=== PATIENT | male | born 1990 | race Caucasian/White ===

== ENCOUNTER 2016-09-12 17:59 | Emergency (ER) | payer SELFPAY ==
[2016-09-12] MEDS ORDERED: Sodium Chloride 0.9% 1,000 ML IV ONE (18:26)
[2016-09-12] MEDS ORDERED: Ondansetron 4 MG/2 ML SDV IVPUSH ONE (18:26)
[2016-09-12] MEDS ORDERED: Ketorolac 30 MG/ML SDV IVPUSH ONE (18:26)
--- NOTE | 2016-09-12 18:26 | EDM.PDOC ---
ED HPI GENERAL MEDICAL PROBLEM - General Chief Complaint: General Stated Complaint: PT HAS BODY PAIN Time Seen by Provider: 09/12/16 18:18 Source of Information: Reports: Patient History Limitations: Reports: No Limitations - History of Present Illness INITIAL COMMENTS - FREE TEXT/NARRATIVE: History of present illness: [25-year-old male presenting with complaints of fever, malaise as well as breaking out in sweats last night. Patient indicates that he has lower back pain and pain down his legs. He does acknowledge she doesn't have 2 things at his job but this feels like it might be more than just that.] Review of systems: As per history of present illness and below otherwise all systems reviewed and negative. Past medical history: As per history of present illness and as reviewed below otherwise noncontributory. Surgical history: As per history of present illness and as reviewed below otherwise noncontributory. Social history: No reported history of drug or alcohol abuse. Family history: As per history of present illness and as reviewed below otherwise noncontributory. Physical exam: HEENT: Atraumatic, normocephalic, pupils reactive, negative for conjunctival pallor or scleral icterus, mucous membranes moist, throat clear, neck supple, nontender, trachea midline. Lungs: Clear to auscultation, breath sounds equal bilaterally, chest nontender. Heart: S1S2, regular, negative for clicks, rubs, or JVD. Abdomen: Soft, diffuse nonspecific tenderness and nondistended abdomen. Negative for masses or hepatosplenomegaly. Negative for costovertebral tenderness. Pelvis: Stable nontender. Genitourinary: Deferred. Rectal: Deferred. Extremities: Atraumatic, negative for cords or calf pain. Neurovascular unremarkable. Neuro: Awake, alert, oriented. Cranial nerves II through XII unremarkable. Cerebellum unremarkable. Motor and sensory unremarkable throughout. Exam nonfocal. CT of abdomen negative for acute findings incidental findings of 2.5 cm segment of small bowel intussusception Spoke with Dr Sims for guidance and instructed on clear liquid and parameters for return to provide to patient. Diagnostics: [CBC, CMP] Therapeutics: [IV fluid, Toradol, Zofran] Impression: [Abdominal pain] Plan: [Gut rest clear fluids] Definitive disposition and diagnosis as appropriate pending reevaluation and review of above. Bilateral Lower Back Pain Score (Numeric/FACES): 8 - Related Data Allergies Allergy/AdvReac Type Severity Reaction Status Date / Time No Known Allergies Allergy Verified 09/12/16 18:24 Home Meds: Home Meds . [No Known Home Meds] 09/12/16 [History] ED ROS GENERAL - Review of Systems Review Of Systems: See Below (See history of present illness) ED EXAM, GENERAL - Physical Exam Exam: See Below (See history of present illness) Course - Vital Signs Last Recorded V/S: Last Vital Signs Temp 36.4 C 09/12/16 18:17 Pulse 120 H 09/12/16 18:17 Resp 20 09/12/16 18:17 BP 134/81 09/12/16 18:17 Pulse Ox 96 09/12/16 18:17 - Orders/Labs/Meds Orders: Active Orders 24 hr Category Date Time Status Abdomen Pelvis w Cont [CT] Stat Exams 09/12/16 19:32 Ordered Labs: Laboratory Tests 09/12/16 09/12/16 09/12/16 Range/Units 18:33 18:33 19:38 WBC 11.38 H (4.0-11.0) K/uL RBC 5.71 (4.50-5.90) M/uL Hgb 17.5 H (13.0-17.0) g/dL Hct 48.4 (38.0-50.0) % MCV 84.8 (80.0-98.0) fL MCH 30.6 (27.0-32.0) pg MCHC 36.2 (31.0-37.0) g/dL RDW Std Deviation 39.7 (28.0-62.0) fl RDW Coeff of [place] 13 (11.0-15.0) % Plt Count 206 (150-400) K/uL MPV 11.00 (7.40-12.00) fL Neut % (Auto) 91.3 H (48.0-80.0) % Lymph % (Auto) 2.7 L (16.0-40.0) % [place] % (Auto) 5.7 (0.0-15.0) % Eos % (Auto) 0.0 (0.0-7.0) % Baso % (Auto) 0.3 (0.0-1.5) % Neut # (Auto) 10.4 H (1.4-5.7) K/uL Lymph # (Auto) 0.3 L (0.6-2.4) K/uL [place] # (Auto) 0.7 (0.0-0.8) K/uL Eos # (Auto) 0.0 (0.0-0.7) K/uL Baso # (Auto) 0.0 (0.0-0.1) K/uL Nucleated RBC % 0.0 /100WBC Nucleated RBCs # 0 K/uL Sodium 135 L (136-146) mmol/L Potassium 4.4 (3.5-5.1) mmol/L Chloride 98 (98-110) mmol/L Carbon Dioxide 26 (21-31) mmol/L BUN 10 (6.0-23.0) mg/dL Creatinine 1.1 (0.6-1.5) mg/dL Est Cr Clr Drug Dosing 90.81 mL/min Estimated GFR (MDRD) > 60.0 ml/min Glucose 140 H (60-110) mg/dL Calcium 9.4 (8.8-10.8) mg/dL Total Bilirubin 2.1 H (0.1-1.5) mg/dL AST 91 H (5-40) IU/L ALT 91 H (8-54) IU/L Alkaline Phosphatase 113 (40-150) Total Protein 7.6 (6.0-8.0) g/dL Albumin 4.4 (3.5-5.0) g/dL Globulin 3.2 (2.0-3.5) g/dL Albumin/Globulin Ratio 1.4 (1.3-2.8) Urine Color YELLOW Urine Appearance CLEAR Urine pH 7.0 (5.0-8.0) Ur Specific [place] 1.010 (1.001-1.035) Urine Protein NEGATIVE (NEGATIVE) mg/dL Urine Glucose (UA) NEGATIVE (NEGATIVE) mg/dL Urine Ketones NEGATIVE (NEGATIVE) mg/dL Urine Occult Blood NEGATIVE (NEGATIVE) Urine Nitrite NEGATIVE (NEGATIVE) Urine Bilirubin NEGATIVE (NEGATIVE) Urine Urobilinogen 2.0 H (<2.0) EU/dL Ur Leukocyte Esterase NEGATIVE (NEGATIVE) Urine RBC 0-1 (0-2/HPF) Urine WBC 0-1 (0-5/HPF) Ur Epithelial Cells RARE (NONE-FEW) Urine Bacteria RARE (NEGATIVE) Meds: Medications Discontinued Medications Generic Name Dose Route Start Last Admin Trade Name Terri PRN Reason Stop Dose Admin Sodium Chloride 1,000 mls @ 999 mls/hr 09/12/16 18:26 09/12/16 18:38 Normal Saline IV 09/12/16 19:26 999 mls/hr STAT ONE Administration Iopamidol 100 ml 09/12/16 19:36 09/12/16 19:37 Isovue Multipack-370 (76%) IVPUSH 09/12/16 19:37 100 ml ONETIME STA Administration Ketorolac Tromethamine 30 mg 09/12/16 18:26 09/12/16 18:38 Toradol IVPUSH 09/12/16 18:27 30 mg ONETIME ONE Administration Ondansetron HCl 8 mg 09/12/16 18:26 09/12/16 18:38 Zofran IVPUSH 09/12/16 18:27 8 mg ONETIME ONE Administration Departure - Departure Time of Disposition: 20:45 Disposition: Home, Self-Care 01 Condition: Good Clinical Impression: Malaise and fatigue - Discharge Information Forms: ED Department Discharge Additional Instructions: The following information is given to patients seen in the emergency department who are being discharged to home. This information is to outline your options for follow-up care. We provide all patients seen in our emergency department with a follow-up referral. The need for follow-up, as well as the timing and circumstances, are variable depending upon the specifics of your emergency department visit. If you don't have a primary care physician on staff, we will provide you with a referral. We always advise you to contact your personal physician following an emergency department visit to inform them of the circumstance of the visit and for follow-up with them and/or the need for any referrals to a consulting specialist. The emergency department will also refer you to a specialist when appropriate. This referral assures that you have the opportunity for follow-up care with a specialist. All of these measure are taken in an effort to provide you with optimal care, which includes your follow-up. Under all circumstances we always encourage you to contact your private physician who remains a resource for coordinating your care. When calling for follow-up care, please make the office aware that this follow-up is from your recent emergency room visit. If for any reason you are refused follow-up, please contact the [facility] Emergency Department at and asked to speak to the emergency department charge nurse. Hydrate as directed Move to a clear liquid diet for the next 48 hours as tolerated with soft foods things like bananas rice applesauce and toast Follow-up with PCP 1-2 days Return to ED as needed as discussed [facility] [address] [place] [id number] - My Orders Last 24 Hours: My Active Orders 09/12/16 19:32 Abdomen Pelvis w Cont [CT] Stat - Assessment/Plan Last 24 Hours: My Active Orders 09/12/16 19:32 Abdomen Pelvis w Cont [CT] Stat
[2016-09-12 18:56] LABS: CHLORIDE,CL 98 mmol/L (98-110); SODIUM,NA 135 mmol/L (136-146)
[2016-09-12] MEDS ORDERED: Iopamidol 755 MG/ML 500 ML Multipack Bottle IVPUSH STA (19:36)
[2016-09-12 22:02] VITALS: BP 114/74
--- NOTE | 2016-09-12 22:09 | PCM.CONS ---
H&P History of Present Illness - General Date of Service: 09/12/16 Admit Problem/Dx: Patient is a 25-year-old gentleman, who presented to the emergency room earlier this evening complaining of back pain, fever and chills. Generalized muscle aches. No nausea or vomiting. Initially no complaints of abdominal pain. Was noted to have mild elevation of his liver enzymes. CT scan was done secondary to the elevated liver enzymes and an incidental finding of a 2.5 cm segment of small bowel intussusception with no obstruction or bowel wall thickening was noted. I was asked to see the patient for that problem. Following completion of the CT scan and on repeat abdominal exam. He did have some mild tenderness in the left upper mid abdomen. Again, there was no nausea or vomiting. He was given 1 dose of port, offer her discomfort, but no narcotics. He currently rates his pain at a 0-1. Source of Information: Patient History Limitations: Reports: No Limitations - History of Present Illness Onset of Symptoms: Reports: Today Duration of Symptoms: Reports: Improving Location: Reports: Abdomen Quality: Reports: Ache Severity: Mild Improves with: Reports: None Worsens with: Reports: None Context: Reports: Sick Contact Associated Symptoms: Reports: Diaphoresis, Fever/Chills. Denies: Headaches, Loss of Appetite, Malaise, Nausea/Vomiting, Shortness of Breath Bilateral Lower Back Pain Score (Numeric/FACES): 0 - Related Data Allergies/Adverse Reactions: Allergies Allergy/AdvReac Type Severity Reaction Status Date / Time No Known Allergies Allergy Verified 09/12/16 18:24 Home Medications: Home Meds . [No Known Home Meds] 09/12/16 [History] Past Medical History - Past Health History Medical/Surgical History: Denies Medical/Surgical History - Past Surgical History HEENT Surgical History: Reports: Tonsillectomy, Other (See Below) ([place] teeth extraction) Social & Family History - Family History Family Medical History: Noncontributory - Tobacco Use Smoking Status *Q: Current Every Day Smoker Years of Tobacco use: 6 Packs/Tins Daily: 0.5 - Caffeine Use Caffeine Use: Reports: Coffee - Recreational Drug Use Recreational Drug Use: No H&P Review of Systems - Review of Systems: Review Of Systems: See Below General: Reports: Fever, Diaphoresis. Denies: Chills, Malaise, Weakness, Fatigue, Night Sweats, Decreased Appetite HEENT: Reports: No Symptoms Pulmonary: Denies: Shortness of Breath, Wheezing Cardiovascular: Denies: Chest Pain Gastrointestinal: Reports: Abdominal Pain (Currently rates 0-1.), Flatus. Denies: Anorexia, Black Stool, Bloody Stool, Constipation, Diarrhea, Decreased Appetite, Distension, Hematemesis, Hematochezia, Melena, Nausea, Vomiting Genitourinary: Reports: No Symptoms Musculoskeletal: Reports: Back Pain, Muscle Pain Skin: Denies: Cyanosis, Jaundice Psychiatric: Denies: Confusion, Depression, Mood Lability, Anxiety Neurological: Reports: No Symptoms Hematologic/Lymphatic: Reports: No Symptoms Immunologic: Reports: No Symptoms Exam - Exam Exam: See Below - Vital Signs Vital Signs: Last Vital Signs Temp 97.8 F 09/12/16 21:55 Pulse 70 09/12/16 21:55 Resp 18 09/12/16 21:55 BP 114/74 09/12/16 21:55 Pulse Ox 98 09/12/16 21:55 Weight: 136 lb 10.986 oz - Exam General: Alert, Oriented, Cooperative, Mild Distress HEENT: Conjunctiva Clear, EACs Clear, EOMI, Hearing Intact, Posterior Pharynx Clear. No: Scleral Icterus Neck: Supple, Trachea Midline. No: Lymphadenopathy Lungs: Clear to Auscultation, Normal Respiratory Effort Cardiovascular: Regular Rate, Regular Rhythm, Normal S1, Normal S2. No: Bradycardia, Tachycardia GI/Abdominal Exam: Normal Bowel Sounds, Soft, Non-Tender, No Organomegaly, No Distention. No: Guarding, Rigid, Rebound, Hepatomegaly, Splenomegaly (Male) Exam: No Hernia, Normal Inspection Rectal (Males) Exam: Deferred Back Exam: Normal Inspection, Full Range of Motion Extremities: Normal Inspection, No Pedal Edema, Normal Capillary Refill Peripheral Pulses: 4+: Posterior Tibial (L), Posterior Tibial (R), Dorsalis Pedis (L), Dorsalis Pedis (R) Skin: Warm, Dry, Intact Neurological: Cranial Nerves Intact Neuro Extensive - Mental Status: Alert, Oriented x3, Normal Mood/Affect Psychiatric: Alert, Normal Affect, Normal Mood - Patient Data Lab Results Last 24 hrs: Laboratory Results - last 24 hr 09/12/16 09/12/16 09/12/16 Range/Units 18:33 18:33 19:38 WBC 11.38 H (4.0-11.0) K/uL RBC 5.71 (4.50-5.90) M/uL Hgb 17.5 H (13.0-17.0) g/dL Hct 48.4 (38.0-50.0) % MCV 84.8 (80.0-98.0) fL MCH 30.6 (27.0-32.0) pg MCHC 36.2 (31.0-37.0) g/dL RDW Std Deviation 39.7 (28.0-62.0) fl RDW Coeff of [place] 13 (11.0-15.0) % Plt Count 206 (150-400) K/uL MPV 11.00 (7.40-12.00) fL Neut % (Auto) 91.3 H (48.0-80.0) % Lymph % (Auto) 2.7 L (16.0-40.0) % [place] % (Auto) 5.7 (0.0-15.0) % Eos % (Auto) 0.0 (0.0-7.0) % Baso % (Auto) 0.3 (0.0-1.5) % Neut # (Auto) 10.4 H (1.4-5.7) K/uL Lymph # (Auto) 0.3 L (0.6-2.4) K/uL [place] # (Auto) 0.7 (0.0-0.8) K/uL Eos # (Auto) 0.0 (0.0-0.7) K/uL Baso # (Auto) 0.0 (0.0-0.1) K/uL Nucleated RBC % 0.0 /100WBC Nucleated RBCs # 0 K/uL Sodium 135 L (136-146) mmol/L Potassium 4.4 (3.5-5.1) mmol/L Chloride 98 (98-110) mmol/L Carbon Dioxide 26 (21-31) mmol/L BUN 10 (6.0-23.0) mg/dL Creatinine 1.1 (0.6-1.5) mg/dL Est Cr Clr Drug Dosing 90.81 mL/min Estimated GFR (MDRD) > 60.0 ml/min Glucose 140 H (60-110) mg/dL Calcium 9.4 (8.8-10.8) mg/dL Total Bilirubin 2.1 H (0.1-1.5) mg/dL AST 91 H (5-40) IU/L ALT 91 H (8-54) IU/L Alkaline Phosphatase 113 (40-150) Total Protein 7.6 (6.0-8.0) g/dL Albumin 4.4 (3.5-5.0) g/dL Globulin 3.2 (2.0-3.5) g/dL Albumin/Globulin Ratio 1.4 (1.3-2.8) Urine Color YELLOW Urine Appearance CLEAR Urine pH 7.0 (5.0-8.0) Ur Specific [employer] 1.010 (1.001-1.035) Urine Protein NEGATIVE (NEGATIVE) mg/dL Urine Glucose (UA) NEGATIVE (NEGATIVE) mg/dL Urine Ketones NEGATIVE (NEGATIVE) mg/dL Urine Occult Blood NEGATIVE (NEGATIVE) Urine Nitrite NEGATIVE (NEGATIVE) Urine Bilirubin NEGATIVE (NEGATIVE) Urine Urobilinogen 2.0 H (<2.0) EU/dL Ur Leukocyte Esterase NEGATIVE (NEGATIVE) Urine RBC 0-1 (0-2/HPF) Urine WBC 0-1 (0-5/HPF) Ur Epithelial Cells RARE (NONE-FEW) Urine Bacteria RARE (NEGATIVE) Result Diagrams: 09/12/16 18:33 09/12/16 18:33 Imaging Impressions Last 24 hrs: The radiologic interpretation suggests a "2.5 cm segment of small bowel intussusception in the left midabdomen. There is no evidence of small bowel obstruction or L wall thickening. Appendix is normal. Overall no evidence of bowel obstruction. No free air, no free fluid." Consult PN Assessment/Plan (1) Intussusception of small intestine SNOMED Code(s): 598531809 Code(s): K56.1 - INTUSSUSCEPTION (2) Malaise and fatigue SNOMED Code(s): 869010446 Code(s): R53.81 - OTHER MALAISE; R53.83 - OTHER FATIGUE Problem List Initiated/Reviewed/Updated: Yes Plan: It appears that the radiologic finding of a small bowel intussusception may be a surreptitious finding. Clinically, the patient is asymptomatic. He was offered the option to stay in the hospital overnight for IV rehydration and reevaluation. He prefers not to stay in the hospital. He was cautioned that he should return immediately if he develops any change in abdominal pain, nausea , vomiting, abdominal distention, or if he quits passing gas or having bowel movements. He was also told to contact my office and speak to my nurse tomorrow to let us know how he is doing. He is willing to return to the hospital at any time if he develops any symptoms. He will most likely require reimaging and repeat of his blood work.
--- NOTE | 2016-09-13 10:49 | CT ---
EXAM DATE: 09/12/16 PATIENT'S AGE: 25 Patient: SUBHASH BEAUCHAMP Facility: [place], [place] Site . Site : 1990 Study: CT Abdomen/Pelvis [id number]/2/2017 8:10:13 PM Ordering Physician: Doctor Hawk Final Report: HISTORY: Left flank pain. TECHNIQUE: The abdomen and pelvis were scanned using helical technique at 3 mm intervals after 100 cc Isovue-370. Sagittal and coronal reconstructions were performed. FINDINGS: Lung bases: No infiltrate. Liver and gallbladder: The liver parenchyma is homogeneous. No calcified gallstones. Spleen, pancreas and adrenal glands: Unremarkable. Kidneys and bladder: Symmetric nephrograms. No hydronephrosis. Bladder is incompletely distended and unremarkable. Retroperitoneum and lymph nodes: Abdominal aorta is normal caliber. No pathologic periaortic lymphadenopathy is seen. Contrast: Stomach is incompletely distended. It contains some fluid. There is some fluid seen in nondilated small bowel loops. Axial images 60-70 demonstrates a small bowel intussusception of the left of midline. This most likely is an incidental finding as there is no evidence of bowel obstruction or small bowel wall edema. The appendix is inferior to the cecum and is normal in appearance. There is a small amount of stool and gas seen throughout the colon. There is no free air in the abdomen. There is no free fluid in the pelvis. Pelvic organs: The prostate is normal. Osseous structures: Normal for age. IMPRESSION: 1. 2.5 cm segment of small bowel intussusception in the left mid abdomen. This most likely is an incidental finding as there is no evidence of small bowel obstruction or bowel wall thickening. 2. Normal appendix. 3. No bowel obstruction, free air or free fluid. 4. Symmetric nephrograms without hydronephrosis or ureteral obstruction. Dictated by Zena Barrientos MD @ 09/12/2016 8:36:26 PM Dictated by: Zena Barrientos MD @ 09/12/2016 20:36:59 (Electronic Signature) Report Signed by Proxy. [facility]ITALCheo
== END 2016-09-12 21:55 | disposition home or self-care (01) ==
LOC: MW.ED 17:59
DX: R53.81 Other malaise (principal); R53.83 Other fatigue; R10.9 Unspecified abdominal pain
CPT/HCPCS: 36415; 74177; 80053; 81001; 85025; 96361; 96374; 96375; 99284; J1885; J2405; J7040; Q9967